=== PATIENT | female | born 1960 | race Caucasian/White ===

== ENCOUNTER 2017-08-01 20:55 | Emergency (ER) | payer MEDICARE, OTHER ==
[~2017-08-01] VITALS: Ht 165.1 cm; Wt 85.9 kg
[2017-08-01 20:59] VITALS: BP 137/88
[2017-08-01] MEDS ORDERED: HYDROmorphone 2 MG/ML, 1ML ONE (21:22)
[2017-08-01] MEDS ORDERED: PROMETHAZINE 25 MG/ML, 1ML ONE (21:22)
[2017-08-01] MEDS ORDERED: PROMETHAZINE 25 MG/ML, 1ML IM ONE (21:30)
[2017-08-01] MEDS ORDERED: HYDROmorphone 2 MG/ML, 1ML IM ONE (21:30)
[2017-08-01] MEDS ORDERED: HYDROmorphone/PF 4 MG/ML, 1ML IM ONE (21:30)
[2017-08-01] MEDS ORDERED: PLEASE ENTER ALLERGIES MC SCH (21:30)
== END 2017-08-01 22:14 | disposition home or self-care (01) ==
LOC: ED 22:05
DX: R11.2 Nausea with vomiting, unspecified (principal); F11.23 Opioid dependence with withdrawal; M19.90 Unspecified osteoarthritis, unspecified site; J45.909 Unspecified asthma, uncomplicated; Z87.891 Personal history of nicotine dependence
CPT/HCPCS: 96372; 99284; J1170; J2550

== ENCOUNTER 2020-08-03 12:47 | Outpatient (CLI) | payer MEDICARE, MEDICAID ==
[~2020-08-03 12:47] MED LIST: AMPH30TA2 PO; DULO20CA45 PO; FLUT9.9S16 NAS; IBUP-1223 PO; LEVO50TA5 PO; MONT4TAB5 PO; OMEP10CA5 PO; PREG225C PO
[2020-08-06] MEDS ORDERED: MAGN300C PO (11:05)
[2020-08-06] MEDS ORDERED: POTA10CA PO (11:05)
[2020-08-28] MEDS ORDERED: AMOX1TAB12 PO (10:03)
[2020-08-28] MEDS ORDERED: ACID1TAB7 PO (10:03)
[2020-08-28] MEDS ORDERED: CHOL239. PO (10:03)
[2020-08-28] MEDS ORDERED: PRED20TA PO (10:03)
[2020-08-28] MEDS ORDERED: METR-90 PO (10:03)
[2020-09-03] MEDS ORDERED: OMEP20TA62 PO (08:54)
== END 2020-08-03 23:59 | disposition home or self-care (01) ==
LOC: ROC 12:47
PROVIDERS: ATTEND Radiology Radiation Oncology
DX: C79.31 Secondary malignant neoplasm of brain (principal); Z79.899 Other long term (current) drug therapy
CPT/HCPCS: G0463

== ENCOUNTER → 2020-08-20 | Outpatient (CLI) | payer MEDICARE, MEDICAID ==
[~2020-08-20] MED LIST changes: +GADOTERATE 10 MMOL/20ML SYR ONE; +MAGN300C PO; +POTA10CA PO
== END | disposition home or self-care (01) ==
LOC: RAD 07:49
PROVIDERS: ATTEND Radiology Radiation Oncology
DX: C79.31 Secondary malignant neoplasm of brain (principal); G93.89 Other specified disorders of brain
CPT/HCPCS: 70553; A9575

== ENCOUNTER → 2020-10-29 | Outpatient (CLI) | payer MEDICARE, MEDICAID ==
[~2020-10-29] MED LIST changes: +ACID1TAB7 PO; +AMOX1TAB12 PO; +CHOL239. PO; -GADOTERATE 10 MMOL/20ML SYR ONE; +GADOTERATE 5 MMOL/10ML SYR ONE; +GADOTERATE 7.5 MMOL/15ML SYR ONE; +METR-90 PO; +OMEP20TA62 PO; +PRED20TA PO
== END | disposition home or self-care (01) ==
LOC: CFH 09:02
PROVIDERS: ATTEND Radiology Radiation Oncology
DX: C79.31 Secondary malignant neoplasm of brain (principal); G31.9 Degenerative disease of nervous system, unspecified; I67.82 Cerebral ischemia
CPT/HCPCS: 70553; A9575

== ENCOUNTER 2020-10-30 07:36 | Outpatient (CLI) | payer MEDICARE, MEDICAID ==
[~2020-10-30 07:36] MED LIST changes: -GADOTERATE 5 MMOL/10ML SYR ONE; -GADOTERATE 7.5 MMOL/15ML SYR ONE
== END 2020-10-30 23:59 | disposition home or self-care (01) ==
LOC: ROC 07:36
PROVIDERS: ATTEND Radiology Radiation Oncology
DX: Z08 Encounter for follow-up examination after completed treatment for malignant neoplasm (principal); Z85.841 Personal history of malignant neoplasm of brain; G89.4 Chronic pain syndrome; K21.9 Gastro-esophageal reflux disease without esophagitis; J96.11 Chronic respiratory failure with hypoxia; E83.42 Hypomagnesemia; F32.9 Major depressive disorder, single episode, unspecified; J45.909 Unspecified asthma, uncomplicated; I48.91 Unspecified atrial fibrillation; M19.90 Unspecified osteoarthritis, unspecified site; E66.01 Morbid (severe) obesity due to excess calories; Z68.42 Body mass index [BMI] 45.0-49.9, adult; Z87.891 Personal history of nicotine dependence; Z79.899 Other long term (current) drug therapy
CPT/HCPCS: G0463